=== PATIENT | female | born 1945 | race Caucasian/White ===

== ENCOUNTER 2018-12-31 09:27 | Inpatient (IN) | payer OTHER, MEDICARE ==
[~2018-12-31] VITALS: Ht 154.9 cm; Wt 60.0 kg
[2019-01-01 10:14] VITALS: BP 132/72
== END 2019-01-01 11:32 | disposition home or self-care (01) | DRG 494 ==
LOC: EDBD 09:27 → ED 12:17 → 3NW 13:35 → ED 15:28 → 4NOR 20:55
PROVIDERS: ADMIT Internal Medicine; ATTEND Internal Medicine
PROC: 0SSFXZZ Reposition Right Ankle Joint, External Approach (ICD-10-PCS; principal; 2018-12-31)
PROC: 0QSJ04Z Reposition Right Fibula with Internal Fixation Device, Open Approach (ICD-10-PCS; 2018-12-31)
PROC: 0QSG04Z Reposition Right Tibia with Internal Fixation Device, Open Approach (ICD-10-PCS; 2018-12-31)
PROC: 3E0T3BZ Introduction of Anesthetic Agent into Peripheral Nerves and Plexi, Percutaneous Approach (ICD-10-PCS; 2018-12-31)
DX: S82.851A Displaced trimalleolar fracture of right lower leg, initial encounter for closed fracture (principal); D72.829 Elevated white blood cell count, unspecified; I10 Essential (primary) hypertension; E78.5 Hyperlipidemia, unspecified; W18.39XA Other fall on same level, initial encounter; Y93.89 Activity, other specified; Y92.89 Other specified places as the place of occurrence of the external cause; Y99.8 Other external cause status; X50.1XXA Overexertion from prolonged static or awkward postures, initial encounter; Z90.710 Acquired absence of both cervix and uterus
CPT/HCPCS: 36415; 73600; 73610; 76000; 99291; J3490; S0020; 71045; 80048; 80053; 82040; 85025; 93005; 96374; 96375; C1713; G0378; J0690; J1100; J2250; J2405; J2704; J3010; J2270; J7030